=== PATIENT | male | born 1970 | race Caucasian/White ===

== ENCOUNTER 2020-10-18 03:12 | Outpatient (CLI) | payer BC, SELFPAY ==
[2020-10-27 15:05] LABS: Result Summary NEGATIVE; Specimen WB Whole Blood
== END 2020-10-18 03:32 ==
PROVIDERS: PCP Family Medicine; Visit Provider Advanced Practice Midwife
DX: Z13.228 Encounter for screening for other metabolic disorders (principal)
CPT/HCPCS: 36415; 81220

== ENCOUNTER 2020-11-02 08:18 | Outpatient (CLI) | payer BC, SELFPAY ==
[2020-11-05 18:53] LABS: COVID-19 RT-PCR Result NEGATIVE (Negative)
== END 2020-11-02 08:38 ==
PROVIDERS: PCP Family Medicine; Visit Provider Family Medicine
DX: Z11.59 Encounter for screening for other viral diseases (principal)
CPT/HCPCS: U0003

== ENCOUNTER 2022-03-23 08:51 | Emergency (ER) | payer BC, SELFPAY ==
[2022-03-23 09:08] VITALS: BP 140/97; PULSE 73; RESP 18; TEMP 36.9; O2SAT 99
--- NOTE | 2022-03-23 09:37 | W.ED.GENAD ---
Discharge Plan Disposition Patient Disposition: HOME Condition: Improving Discharge Details Clinical Impression: Eyebrow laceration Primary Care Provider: Leo Givens ED Provider: Lucas Alvarez Discharge Instructions Instructions: Facial Laceration (ED) Additional Instructions: The 4 sutures will slowly dissolve approximately 7 days time. May gently wash with soap and water, pat dry and allowed to air dry once daily. Return for fever, swelling, discharge from the wound, or any other acute concerns. Your tetanus was updated today. Medical Decision Making 51-year-old male presents from home with left eyebrow laceration after striking it with a car door. His tetanus is out of date. Did not lose consciousness or hurt himself in any other way. There is a vertically oriented 1.5 cm laceration that crosses the eyebrow. No bony injury. Wound was irrigated anesthetized, examined in a bloodless field without evidence of foreign body, repaired with 4 interrupted sutures. A thin layer of tissue lesion was placed over the sutures. Good wound edge apposition was achieved. Patient is stable and improved. HPI General Mode of arrival: ambulatory. Date/Time Provider Initiated Documentation: 03/23/22 08:52. Limitations to Documentation: no limitations. Information obtained by: patient. History of Present Illness 51 year old M presents to the emergency department with the chief complaint of Left eyebrow lack, no loss of consciousness out all, described as mild, Quality is described as dull, and is localized to the head. Patient reports no radiation. and it has been constant. improves with No relieving factors improve symptom(s), No exacerbating factors reported . Patient notes denies headaches and syncope. Patient did receive the following treatments prior to arrival, none General Stated Complaint: Laceration ERASMO: 4 Review of Systems Narrative: Tetanus out of date, no loss of consciousness, otherwise healthy man [facility] All Active Problems (Updated 03/23/22 @ 09:43 by Lucas Alvarez MD) Eyebrow laceration (Acute) Cystic fibrosis screening (Acute) Social History Smoking/Tobacco Use Status: Never Smoking risk assessment performed?: Yes Alcohol Intake: never Drug use: Never Substance use type: does not use Do you feel safe at home: Yes Do you feel safe in your relationship?: Yes Exam Narrative Exam Narrative: GEN: awake, alert, oriented 3. Pleasant, well groomed, interactive. HEAD: Normocephalic, left eyebrow, lateral third, vertically oriented 1.5 cm laceration. No foreign body. ENT: Mucous membranes moist, oropharynx unremarkable, External ear exam unremarkable EYES: PERRL, EOMI Psych: Speech fluent, thoughts congruent, affect normal Course Vital Signs Vital signs: Vital Signs Temperature 36.9 C 03/23/22 09:08 Pulse 73 03/23/22 09:08 Respiratory Rate 18 03/23/22 09:08 Blood Pressure 140/97 H 03/23/22 09:08 Pulse Oximetry 99 03/23/22 09:08 Temperature 36.9 C 03/23/22 09:08 Temperature Source Temporal Artery Scan 03/23/22 09:08 Pulse 73 03/23/22 09:08 Respiratory Rate 18 03/23/22 09:08 Blood Pressure 140/97 H 03/23/22 09:08 Blood Pressure Position Sitting 03/23/22 09:08 Pulse Oximetry 99 03/23/22 09:08 Oxygen Delivery Method Room Air 03/23/22 09:08 Oxygen Flow Rate 0 03/23/22 09:08 Procedures Laceration Laceration 1: Site: face Side (If applicable): left Size (cm): 1.5 Description: linear Depth: simple, single layer Local Anesthetic: Lidocaine 1% Pre-repair: wound explored and irrigated extensively Skin layer closed with: vicryl Size (cm): 4-0 Number of sutures: 4
[2022-03-23] MEDS: Tetanus & Diphtheria Tox,ADULT 0.5 ML VIAL IM (09:43)
== END 2022-03-23 10:52 | disposition home or self-care (01) ==
PROVIDERS: Emergency Provider Emergency Medicine; PCP Family Medicine
DX: S01.112A Laceration without foreign body of left eyelid and periocular area, initial encounter (principal); W22.8XXA Striking against or struck by other objects, initial encounter
CPT/HCPCS: 12011; 90471

== ENCOUNTER → 2022-09-22 00:45 | Outpatient (CLI) | payer BC, SELFPAY ==
--- NOTE | 2022-09-22 | DI.RAD_ITS ---
Exam(s) XR HAND LT COMPLETE EXAM: XR HAND LT COMPLETE CLINICAL HISTORY: LT HAND PAIN, M79.642. TECHNIQUE: 2D digital imaging was performed of the left hand. Three views were obtained. AP, later al and oblique views were obtained. COMPARISON: No exams were available for comparison FINDINGS: BONES: No acute fracture is present. No bony destructive lesion is seen. There is a well corticated o sseous density at the distal scaphoid which appears chronic. JOINTS: No dislocation present. There are mild degenerative changes of the hand particularly at the [address] st CMC joint where there are small osteophytes present. SOFT TISSUE: Normal. IMPRESSION: No acute abnormality. DATA REPOSITORY: RADIATION DOSE DELIVERED:
--- OUTSIDE RECORDS SUMMARY | 2022-09-22 00:49 | XMS_ITS | Encounter Summary ---
:1970 Author Organization [facility] Address [address] [place] [address] Care Team Providers Name Role Phone Unavailable Primary Care Provider Unavailable Encounter Details Date Type Department Care Team Description 01/18/2022 Ancillary Procedure Radiology Library at Leo Givens DO [facility] [address] [facility] [address] [place] [address] [phone] Social History Tobacco Use Types Packs/Day Years Used Date Never Assessed Sex Assigned at Date Recorded Not on file documented as of this encounter Plan of Treatment Not on filedocumented as of this encounter Procedures Procedure Name Priority Date/Time Associated Diagnosis Comme nts FILM LIBRARY Routine 01/18/2022 12:00 AM Results for this STORAGE ONLY DX EST procedure ar e in SPINE the results section. documented in this encounter Results Film Library- Storage Only DX Spine (01/18/2022 12:00 AM EST) Specimen (Source) Anatomical Location Collection Method / Collectio n Time Received Time / Laterality Volume Narrative SANTO TAVERAS - 02/09/2022 8:39 AM EDT This exam is auto-finalizing. It's purpo se is for storage only. Leo Glez DO [facility] [place]M LIBRARY ORDERABLES Performing Organization Address City/State/ZIP Code Phon e Number DARC[place], [place] documented in this encounter Visit Diagnoses Not on filedocumented in this encounter
--- OUTSIDE RECORDS SUMMARY | 2022-09-22 00:49 | XMS_ITS | Encounter Summary ---
:1970 Author Organization [facility] [place] [address] Care Team Providers Name Role Phone Chon Glez DO, David Primary Care Provider Encounter Details Date Type Department Care Team Description 01/27/2022 Ancillary Procedure Radiology Library at Leo Givens DO [address] [address] [place] [address] [phone] Social History Tobacco Use Types Packs/Day Years Used Date Never Assessed Sex Assigned at Date Recorded Not on file documented as of this encounter Plan of Treatment Not on filedocumented as of this encounter Procedures Procedure Name Priority Date/Time Associated Diagnosis Comme nts FILM LIBRARY Routine 01/27/2022 12:00 AM Results for this STORAGE ONLY MR EST procedure ar e in SPINE the results section. documented in this encounter Results Film Library- Storage Only MR Spine (01/27/2022 12:00 AM EST) Specimen (Source) Anatomical Location Collection Method / Collectio n Time Received Time / Laterality Volume Narrative SANTO TAVERAS - 02/09/2022 8:35 AM EDT This exam is auto-finalizing. It's purpo se is for storage only. 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
--- OUTSIDE RECORDS SUMMARY | 2022-09-22 00:49 | XMS_ITS | Clinical Summary ---
:1970 Author Organization [facility] [place] [address] Care Team Providers Name Role Phone Chon Glez DO, David Primary Care Provider Social History Tobacco Use Types Packs/Day Years Used Date Never Assessed Sex Assigned at Date Recorded Not on file Plan of Treatment Health Maintenance Due Date Last Done Comments Covid-19 Vaccine (#1) 01/24/1970 HIV screen 1987 Hepatitis C Screening 1987 Lipid Screening 1987 Tdap adult 1988 Tetanus vaccine 1988 Colonoscopy 2014 Zoster vaccine (1 of 2) 2019 Influenza (Flu) vaccine (1 of 1 - Influenza standard 2022 series) Insurance Payer Benefit Plan Subscriber ID Effective Dates Phone Address Type / Group [facility] [id number] [facility] [phone] [address] [facility] [address] [facility] [address] Care Teams 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
--- OUTSIDE RECORDS SUMMARY | 2022-09-22 00:49 | XMS_ITS ---
:1970 Author Organization [facility] Address [address], [place] [id number] Care Team Providers Name Role Phone Chun Slaughter Unavailable Unavailable PROBLEMS Unknown Problems ALLERGIES Substance Reaction Event Type Date Status Amitriptyline Unknown Drug Allergy Feb, Active ENCOUNTERS Encounter Location Date Diagnosis [facility] [address] [facility] [address] [place], [place] [id number] IMMUNIZATIONS No Known Immunizations SOCIAL HISTORY Qualifiers Date Never Smoker REASON FOR REFERRAL FUNCTIONAL STATUS PLAN OF CARE VITAL SIGNS MEDICATIONS Medication Instructions Dosage Frequency Start End Date Duration Stat us Date tylenol 325 mg 1 tab 14 days Active tiZANidine HCl Orally Three 1 tablet 8h Act jose 4 MG times a day as needed Ibuprofen 600 Orally every 4 1 tablet 4h Ac tive MG hrs as needed PROCEDURES No Known procedures RESULTS No Results REASON FOR VISIT [facility]-Degenerative Disc Disease Lumbar Spine, sciatica Insurance Providers [facility]ly [facility] Health Member Patient Patient Patient Patient Patient Subscriber Subscriber Subscriber Group Insurance Plan Plan Plan Plan ID Relationship Address Phone Name Date of ID Name Date of No Type Insurance Insurance Insurance Coverage to Subscriber Address Phone Name Dates [place] [phone] [place] self [place] [id number] [place] [address] [place] [address] [place] [address]
--- OUTSIDE RECORDS SUMMARY | 2022-09-22 00:49 | XMS_ITS | Encounter Summary ---
:1970 Demographics Home Phone Preferred Language Unknown Marital Status Unknown Orthodoxy Affiliation Unknown Race Unknown Ethnic Group Unknown Author Organization [facility] Address [address] [place] [address] Care Team Providers Name Role Phone Unavailable Primary Care Provider Unavailable Encounter Details Date Type Department Care Team Description 11/02/2020 Lab Requisition [facility] Outr Resulting Lab, Pathology & Laboratory Provider [facility] [address], [place] [id number] [phone] Social History Tobacco Use Types Packs/Day Years Used Date Never Assessed Sex Assigned at Date Recorded Not on file documented as of this encounter Plan of Treatment Not on filedocumented as of this encounter Procedures Procedure Name Priority Date/Time Associated Comments Diagnosis DO NOT ORDER Today 11/02/2020 8:38 EST Results for this STANDALONE - BROAD procedure are in COVID TEST the results section. COVID-19 TESTING Routine 11/02/2020 8:38 EST Resu lts for this procedure are i n the results section. documented in this encounter Results DO NOT ORDER STANDALONE - BROAD COVID TEST (11/02/2020 8:38 EST) COVID-19 rt-PCR NEGATIVE Negative [facility] Result Comment: LABORATORY 2019-novel Coronavirus (2019 -nCoV) not detected by the qRT-PCR assay. Consider testing for other respiratory viruses or re-collecting for 2019-nCoV testing. Note: Optimum timing for peak viral levels du ring infections caused by 20 -nCoV have not been determined. Collection of multiple specimens from the same patient may be necessary to detect the virus. Limitations Positive results are indicat jose of active infection with SARS-CoV-2 but do not rule out bacterial infection or co-infection with other viruses. The agent detected may not be the definite cause of diseas e. In addition, detection of viral RNA may not indicate the presence of infectious virus or that SARS-CoV-2 is the causative agent for clinical symptoms. Negative results do not prec lude SARS-CoV-2 infection and should not be used as the sole basis for patient management decisions. Negative results must be combined with clinical observations, patient his tory, and epidemiological in formation. False negative results may also occur if amplification inhibitors are present in the specimen or if inadequate numbers of organisms are present in the specimen. Op timum specimen types and laure ing for peak viral levels during infections caused by SARS-CoV-2 have not been fully determined. Collection of multiple specimens (types and time points) from the same patient may be necessary to detect the virus. The test was validated for u se with upper respiratory specimens obtained via nasopharyngeal or oropharyngeal swabs in VTM, UTM, M4, M5, M6, saline, and MTM media. The performance of this test has not be en established for other spe cimens. Specimens collected using other FDA recommended Specimen Collection Materials listed in the FDA COVID-19 [employer] communication (February 19, 2020) are pr ocessed with the caveat that they were not all validated for use with this test and the result must be interpreted in this context. Furthermore, a false negative results may occur if a specimen is improperly collected, transported or handled. If the virus mutates in the RT-PCR target region, SARS-CoV-2 may not be detected or may be detected less predictably. Inhibitors or other types of interference may produce a false negative result. An interference study evaluating the effect of common cold medications was not performed. This test is not FDA-cleared but its performance characteristics were established by our CLIA-certified, CAP-accredited, high complexity laboratory in accordance with CLIA regulations, [employer] (CAP) guidel gina (Feb 12, 2020), and FDA guidance (Jan 24, 2020). This test is only for use un bianca the Food and Drug Administration's Emergency Use Authorization. Specimen Swab - Entire nasopharynx (body structur e) Performing Organization Address City/State/ZIP Code Phon e Number [facility] [place] COVID-19 TESTING (11/02/2020 8:38 EST) COVID-19 rt-PCR NEGATIVE Negative [facility] Result Comment: LABORATORY 2019-novel Coronavirus (2019 -nCoV) not detected by the qRT-PCR assay. Consider testing for other respiratory viruses or re-collecting for 2019-nCoV testing. Note: Optimum timing for peak viral levels du ring infections caused by 20 19-nCoV have not been determined. Collection of multiple specimens from the same patient may be necessary to detect the virus. Limitations Positive results are indicat jose of active infection with SARS-CoV-2 but do not rule out bacterial infection or co-infection with other viruses. The agent detected may not be the definite cause of diseas e. In addition, detection of viral RNA may not indicate the presence of infectious virus or that SARS-CoV-2 is the causative agent for clinical symptoms. Negative results do not prec lude SARS-CoV-2 infection and should not be used as the sole basis for patient management decisions. Negative results must be combined with clinical observations, patient his tory, and epidemiological in formation. False negative results may also occur if amplification inhibitors are present in the specimen or if inadequate numbers of organisms are present in the specimen. Op timum specimen types and laure ing for peak viral levels during infections caused by SARS-CoV-2 have not been fully determined. Collection of multiple specimens (types and time points) from the same patient may be necessary to detect the virus. The test was validated for u se with upper respiratory specimens obtained via nasopharyngeal or oropharyngeal swabs in VTM, UTM, M4, M5, M6, saline, and MTM media. The performance of this test has not be en established for other spe cimens. Specimens collected using other FDA recommended Specimen Collection Materials listed in the FDA COVID-19 [employer] communication (February 19, 2020) are pr ocessed with the caveat that they were not all validated for use with this test and the result must be interpreted in this context. Furthermore, a false negative results may occur if a specimen is improperly collected, transported or handled. If the virus mutates in the RT-PCR target region, SARS-CoV-2 may not be detected or may be detected less predictably. Inhibitors or other types of interference may produce a false negative result. An interference study evaluating the effect of common cold medications was not performed. This test is not FDA-cleared but its performance characteristics were established by our CLIA-certified, CAP-accredited, high complexity laboratory in accordance with CLIA regulations, [employer] (CAP) guidel gina (Feb 12, 2020), and FDA guidance (Jan 24, 2020). This test is only for use un bianca the Food and Drug Administration's Emergency Use Authorization. Performing Lab [facility] LABORATORY SERVICES Specimen Swab Performing Organization Address City/State/ZIP Code Phon e Number [facility] [address] [place] [address] SERVICES [facility] [place] documented in this encounter Visit Diagnoses Not on filedocumented in this encounter
--- OUTSIDE RECORDS SUMMARY | 2022-09-22 00:49 | XMS_ITS | Encounter Summary ---
:1970 Author Organization [facility] [place] [address] Care Team Providers Name Role Phone Chon Glez DO, David Primary Care Provider Reason for Referral Consultation (Routine) - Closed Specialty Diagnoses / Procedures Referred By Contact Refer red To Contact Neurosurgery Diagnoses Degenerative disc disease, lumbar Sciatica of left side Leo Givens DO [facility] Neurosurgery [address] [place], [place] [phone] Referral ID Status Reason Start Date Expiration Date Visits V isits Requested Authorized [id number] Closed Consult, 01/20/2022 01/20/2023 6 6 Test & Treat Encounter Details Date Type Department Care Team Description 01/20/2022 Transcribe Orders Administration Leo Givens Degenerative disc disease, l umbar; [facility] DO [place] Sciatica of left side [address] [place] [address] [place], [place] [phone] Social History Tobacco Use Types Packs/Day Years Used Date Never Assessed Sex Assigned at Date Recorded Not on file documented as of this encounter Plan of Treatment Scheduled Referrals Name Type Priority Associated Diagnoses Order S chedule Referral to Outpatient Referral Routine Degenerative disc Ord ered: Neurosurgery disease, lumbar 01/20/2022 Sciatica of left side documented as of this encounter Visit Diagnoses Diagnosis Degenerative disc disease, lumbar Degeneration of lumbar or lumbosacral in tervertebral disc Sciatica of left side Sciatica documented in this encounter 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
== END ==
PROVIDERS: PCP Family Medicine; Visit Provider Family Medicine
DX: M79.642 Pain in left hand (principal)
CPT/HCPCS: 73130

== ENCOUNTER 2022-09-29 16:04 | Emergency (ER) | payer BC, SELFPAY ==
[2022-09-29 16:09] VITALS: BP 133/94; PULSE 102; RESP 15; TEMP 36.8; O2SAT 97
--- NOTE | 2022-09-29 16:30 | W.ED.GENAD ---
Discharge Plan Disposition Patient Disposition: HOME Condition: Good Discharge Details Clinical Impression: URI (upper respiratory infection) Primary Care Provider: Leo Givens ED Provider: Tuan Youssef Home Meds and New Rx's Prescriptions: New azithromycin 250 mg tablet See Rx Instructions .ROUTE .COMPLEX Qty: 6 0RF Rx Instructions: For 250 mg dose pack: take 500 mg today (day 1), then 250 mg for 4 days (days 2-5) loratadine 10 mg tablet 10 mg PO DAILY Qty: 20 0RF Saline Mist 0.65 % aerosol,spray 2 spray intranasal QID PRNQty: 44 0RF benzonatate 100 mg capsule 100 mg PO TID Qty: 30 0RF Discharge Instructions Instructions: Upper Respiratory Infection (ED) Additional Instructions: At this time your symptoms do not appear consistent with pneumonia for a bacterial sinus infection. Please take the loratadine as directed, take the Tessalon Perles as needed for cough, please use a saline mist frequently at least every 6 hours throughout the day to help with your nasal congestion, and utilize the [place] pot technique that we discussed together. If you develop fevers, rigors, chills, and worsening, please take the antibiotic as directed. Otherwise I would recommend holding off on any antibiotic use as I do not see any current evidence of a bacterial infection. If you notice any worsening of your symptoms, or any new symptoms such as vomiting, diarrhea, fever, chills, shortness of breath, chest pain, numbness, weakness, or fainting , please return immediately to the emergency department for reevaluation. Please follow up with your primary care provider as soon as possible for reassessment and reevaluation. As always, it was a pleasure participating in your medical care today. Referrals: Leo Givens [Primary Care Provider] - Medical Decision Making 52-year-old male with a past medical history of tobacco abuse abuse presents today for evaluation of runny nose, cough, congestion and ear pain for the last few days. Patient states that his symptoms have been getting slightly worse. He denies any hemoptysis, chest pain, numbness, tingling or weakness. Sputum is banana colored, and it is mainly coming from his nose. He has been taking radl-mhs-chvqthr anticough and congestion medications but with no improvement. He has not been using any antihistamines. He did have COVID 3 months ago but recovered from this without problem. No other complaints at this time. No other modifying factors. Physical exam demonstrates a well-appearing male. Lung sounds are clear. He has serous effusion behind the left tympanic membrane, but no purulent effusion. No other signs of significant abnormality aside for notably runny nose. No evidence of tympanic membrane rupture. Bedside ultrasound was performed, unfortunately I did not save the images. No evidence of significant pneumonia or consolidation on ultrasound. There was evidence of a very small amount of 1 or 2 B-lines with may be single air bronchogram in the right lower lung field, however this was notably benign. With no persistent fever or rigors I do not think his symptoms are telephone claims representative of significant bacterial pneumonia at this time requiring antibacterial treatment. We will recommend loratadine, Tessalon Perles for cough, saline nasal wash, and Yanelis pot. He will be given a prescription for azithromycin that he is to take if he does develop worsening cough with fever and rigors. Discussed red flags which to return. I have extensively reviewed the treatment plan and discharge instructions with the patient. I have addressed all patient concerns at this time. The patient was made aware of what symptoms to monitor for that would warrant a return to the emergency department. Discussed the plan with the patient, they demonstrate verbal understanding and agreement with our assessment and plan at this time. The documentation in this chart was dictated using [employer] dictation software. Please excuse any dictation errors. Patient has RSV. He was called and informed of the results. Flu and COVID are negative. HPI General Date/Time Provider Initiated Documentation: 09/29/22 16:12. HPI Narrative: 52-year-old male with a past medical history of tobacco abuse abuse presents today for evaluation of runny nose, cough, congestion and ear pain for the last few days. Patient states that his symptoms have been getting slightly worse. He denies any hemoptysis, chest pain, numbness, tingling or weakness. Sputum is banana colored, and it is mainly coming from his nose. He has been taking cdis-rrt-bnrtmye anticough and congestion medications but with no improvement. He has not been using any antihistamines. He did have COVID 3 months ago but recovered from this without problem. No other complaints at this time. No other modifying factors. Related Data Home Medications Medication Instructions Recorded Confirmed azithromycin 250 mg tablet See Rx Instructions PO .COMPLEX #6 09/29/22 tabs benzonatate 100 mg capsule 100 mg PO TID #30 caps 09/29/22 loratadine 10 mg tablet 10 mg PO DAILY #20 tabs 09/29/22 sodium chloride 0.65 % nasal spray 2 spray intranasal QID PRN #44 mL 09/29/22 aerosol (Saline Mist) Previous Rx's Medication Instructions Recorded azithromycin 250 mg tablet See Rx Instructions PO .COMPLEX #6 09/29/22 tabs benzonatate 100 mg capsule 100 mg PO TID #30 caps 09/29/22 loratadine 10 mg tablet 10 mg PO DAILY #20 tabs 09/29/22 sodium chloride 0.65 % nasal spray 2 spray intranasal QID PRN #44 mL 09/29/22 aerosol (Saline Mist) Allergies Allergy/AdvReac Type Severity Reaction Status Date / Time trazodone AdvReac Unverified 09/29/22 16:15 General Stated Complaint: GenMedical ERASMO: 3 Review of Systems All systems reviewed & are unremarkable except as noted in HPI and below PFSH All Active Problems URI (upper respiratory infection) (Acute) Cystic fibrosis screening (Acute) Social History Smoking/Tobacco Use Status: Never Smoking risk assessment performed?: Yes Alcohol Intake: never Drug use: Never Substance use type: does not use Do you feel safe at home: Yes Do you feel safe in your relationship?: Yes Exam Narrative Exam Narrative: 1.Const: Well-nourished, Well-developed, appearing stated age 2.Eyes: PERRL, no conjunctival injection, and symmetrical lids. 3.ENT: Atraumatic external nose and ears. Moist MM. Neck: Symmetric, trachea midline, No thyromegaly. Notably runny nose serous fluid noted behind the left tympanic membrane, no purulent fluid, no fluid on the right tympanic membrane. No erythema in the posterior oropharynx. 4.CVS: +S1/S2, No murmurs or gallops. Peripheral pulses 2+ and equal in all extremities. Brisk capillary refill in all extremities. 5.RESP: Unlabored respiratory effort. Clear to auscultation bilaterally. No wheezes rales or rhonchi 6.GI: Soft, Nontender/Nondistended, No hepatosplenomegaly. No guarding or rebound. 7.MSK: Normocephalic/Atraumatic, Extremities w/o deformity or ttp No cyanosis or clubbing, Normal movement of all extremities 8.Skin: Warm, Dry. No rashes or lesions. 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 Sensation grossly intact, no focal neurologic deficits. 10.Psych: (AAO) x3. Appropriate mood and affect Course Vital Signs Vital signs: Vital Signs Temperature 36.8 C 09/29/22 16:09 Pulse 102 H 09/29/22 16:09 Respiratory Rate 15 09/29/22 16:09 Blood Pressure 133/94 H 09/29/22 16:09 Pulse Oximetry 97 09/29/22 16:09 Temperature 36.8 C 09/29/22 16:09 Temperature Source Oral 09/29/22 16:09 Pulse 102 H 09/29/22 16:09 Respiratory Rate 15 09/29/22 16:09 Respiratory Effort 09/29/22 16:13 Blood Pressure 133/94 H 09/29/22 16:09 Blood Pressure Position Sitting 09/29/22 16:09 Pulse Oximetry 97 09/29/22 16:09 Oxygen Delivery Method Room Air 09/29/22 16:09 Oxygen Flow Rate 0 09/29/22 16:09 Pain Level 8 09/29/22 16:09 PAWSS Have you Been Recently Intoxicated or Drunk Within the Last 30 days?: No Have you Ever Experienced Previous Episodes of Alcohol Withdrawal?: No Have you ever Experienced Withdrawal Seizures?: No Have you ever Experienced Delirium Tremens(DT)s?: No Have you ever undergone Alcohol Rehabilitation Treatment (i.e, inpt ot outpatient treatment programs)?: No Have you ever Experienced Blackouts?: No Have you ever Combined Alcohol with other Downers within the last 90 days?: No Have you ever Combined Alcohol with any other Substance of Abuse during the last 90 days?: No Positive Blood Alcohol level on Presentation? [PCS.BAL]: No Evidence of Increased Autonomic Activity (i.e. HR>120, tremor, sweating, agitation, nausea)?: No Result: 0
[2022-09-29 17:19] LABS: COVID-19 PCR Negative (Negative); Influenza A PCR Negative (Negative); Influenza B PCR Negative (Negative)
[2022-09-29 17:22] LABS: Source Nasopharynx
[2022-09-29 17:24] LABS: RSV PCR Positive (Negative)
[2022-09-29 19:18] VITALS: RESP 15
== END 2022-09-29 16:44 | disposition home or self-care (01) ==
PROVIDERS: Emergency Provider Student in an Organized Health Care Education/Training Program; PCP Family Medicine
DX: J06.9 Acute upper respiratory infection, unspecified (principal)
CPT/HCPCS: 87637; 99283

== ENCOUNTER 2024-09-02 13:17 | Emergency (ER) | payer BC, SELFPAY ==
[2024-09-02 13:26] VITALS: BP 116/79; PULSE 83; RESP 10; TEMP 36.6; O2SAT 97
--- NOTE | 2024-09-02 14:08 | ED.GENADUL_ITS ---
Discharge Plan Disposition Patient Disposition: Home Condition: Stable Discharge Details Clinical Impression: Cut of skin of right thumb Primary Care Provider: Leo Givens ED Provider: Primo Urrutia Home Meds and New Rx's Prescriptions: Continued acetaminophen [Tylenol] 325 mg capsule 650 mg PO DAILY PRN ibuprofen 600 mg tablet 600 mg PO Q8H PRN multivitamin Tablet 1 tab PO DAILY Discharge Instructions Instructions: Skin glue for minor cuts Additional Instructions: If you develop signs of infection such as spreading redness down the finger or yellow-white discharge from the wound return to the emergency department for reevaluation. HPI General Mode of arrival: ambulatory . Date/Time Provider Initiated Documentation: 09/02/24 13:31 . Limitations to Documentation: no limitations . Information obtained by: patient . History of Present Illness 54 year old M presents to the emergency department with the chief complaint of right thumb cut, described as mild, Quality is described as aching, Patient started experiencing this hour(s) (1) and it has been constant. No relieving factors improve symptom(s), No exacerbating factors reported . Patient notes no other symptoms.. Related Data Home Medications ?Medication ?Instructions ?Recorded ?Confirmed acetaminophen 325 mg capsule 650 mg PO DAILY PRN 01/31/24 09/02/24 (Tylenol) ibuprofen 600 mg tablet 600 mg PO Q8H PRN 01/31/24 09/02/24 multivitamin 1 tab PO DAILY 01/31/24 09/02/24 Allergies Allergy/AdvReac Type Severity Reaction Status Date / Time amitriptyline AdvReac Severe I woke up Verified 09/02/24 13:31 [place] a [address] Station, blacked out trazodone AdvReac . Verified 09/02/24 13:31 General Stated Complaint: Laceration ERASMO: 4 Review of Systems All systems reviewed & are unremarkable except as noted in HPI and below Constitutional Constitutional: Denies weakness Integumentary/Breasts Skin/Breast: Denies rash Neurologic Neurologic: Denies weakness Psychiatric Psychiatric: Denies depression Exam Const General: no acute distress Orientation: alert HENMT Head: normal to inspection Ears: external ears normal General nose exam: external nose normal Mouth: moist mucous membranes Eyes General: appearance normal, both eyes and all related structures Neck Neck: normal visual inspection Resp Effort & Inspection: normal respiratory effort and able to speak in complete sentences Cardio Rate: regular rate Skin General skin exam: no rashes or lesions noted Neuro General: patient alert and patient oriented x3 Extrem General: full ROM and capillary refill normal Psych Mental Status: mental status grossly normal Course Vital Signs Vital signs: Vital Signs Temperature 36.6 C 09/02/24 13:26 Pulse 83 09/02/24 13:26 Respiratory Rate 10 L 09/02/24 13:26 Blood Pressure 116/79 09/02/24 13:26 Pulse Oximetry 97 09/02/24 13:26 Temperature 36.6 C 09/02/24 13:26 Temperature Source Oral 09/02/24 13:26 Pulse 83 09/02/24 13:26 Respiratory Rate 10 L 09/02/24 13:26 Respiratory Effort Normal, Non-Labored 09/02/24 13:32 Blood Pressure 116/79 09/02/24 13:26 Blood Pressure Position Sitting 09/02/24 13:26 Pulse Oximetry 97 09/02/24 13:26 Oxygen Delivery Method Room Air 09/02/24 13:26 Oxygen Flow Rate 0 09/02/24 13:26 Pain Level 0 09/02/24 13:26 Procedures Laceration Laceration 1: Site: upper extremity Side (If applicable): right Size (cm): 1 Description: linear Depth: simple, single layer Skin layer closed with: other (skin adhesive) Medical Decision Making 54-year-old male who denies any significant past medical history comes in with a right thumb cut. He says he cut it on a fan just prior to arrival, did not fall or sustain other injuries. He has a very superficial skin tear on the distal tip of his right thumb. He has intact sensation and cap refill and has full range of motion of the thumb. The wound is not deep enough to require sutures, I will apply skin adhesive. Clean the wound with sterile saline, applied skin adhesive and close the wound. Patient tolerated well without complications. He is stable for discharge, advised return signs of infection develop. Differential Diagnosis Differential Diagnosis: Abrasion, laceration, skin tear Quality:SDOH Health Related Social Needs: No Data to Display PFSH All Active Problems (Updated 09/02/24 @ 14:19 by Primo Urrutia MD) Cut of skin of right thumb (Acute) Cystic fibrosis screening (Acute) Medical History (Updated 09/02/24 @ 14:19 by Primo Urrutia MD) Atypical migraine Loose body of elbow Sciatica, left side DJD (degenerative joint disease) Surgical History (Updated 01/31/24 @ 08:04 by Charla Newton RN) Status post lumbar spine surgery for decompression of spinal cord (~2004) History of right knee surgery History of appendectomy History of open reduction and internal fixation (ORIF) procedure Ankle Social History Smoking/Tobacco Use Status: Never Smoking risk assessment performed?: Yes Alcohol Intake: current Alcohol Intake frequency: holidays/special occasions only Drug use: Never Substance use type: does not use Housing: house Do you feel safe at home: Yes Do you feel safe in your relationship?: Yes PAWSS Have you Been Recently Intoxicated or Drunk Within the Last 30 days?: No Have you Ever Experienced Previous Episodes of Alcohol Withdrawal?: No Have you ever Experienced Withdrawal Seizures?: No Have you ever Experienced Delirium Tremens(DT)s?: No Have you ever undergone Alcohol Rehabilitation Treatment (i.e, inpt ot outpatient treatment programs)?: No Have you ever Experienced Blackouts?: No Have you ever Combined Alcohol with other Downers within the last 90 days?: No Have you ever Combined Alcohol with any other Substance of Abuse during the last 90 days?: No Positive Blood Alcohol level on Presentation? [PCS.BAL]: No Evidence of Increased Autonomic Activity (i.e. HR>120, tremor, sweating, agitation, nausea)?: No Result: 0
--- NOTE | 2024-09-02 14:38 | NUR.NOTE ---
Nursing Note: this RN cleaned and dressed right thumb lac. Gave d/c instructions including wound care instructions
== END 2024-09-02 14:54 | disposition home or self-care (01) ==
PROVIDERS: Emergency Provider Emergency Medicine; PCP Family Medicine
DX: S61.011A Laceration without foreign body of right thumb without damage to nail, initial encounter (principal); W26.8XXA Contact with other sharp object(s), not elsewhere classified, initial encounter
CPT/HCPCS: 99282; 99283